=== PATIENT | female | born 1955 | race Caucasian/White ===

== ENCOUNTER 2016-11-01 01:16 | Emergency (ER) | payer BC ==
[~2016-11-01] VITALS: Ht 160 cm; Wt 61.4 kg
[~2016-11-01 01:16] MED LIST: AMBIEN CR 12.12.5 MG PO; BUPROPION75 MG PO; CALTRATE 600 +1 TAB PO; CELEBREX200 MG PO; CEPHALEXIN500 M1 PO; LEXAPRO20 MG PO; LIPITOR20 MG PO; LISINOPRIL20 MG PO; LORTAB 5/500 501 TAB PO; NEURONTIN300 MG PO; PHENERGAN W/CO120 ML PO; PREMPRO 0.625 M1 TAB PO; SYNTHROID0.05 MG PO; VYVANSE50 MG PO; ZYRTEC10 MG PO
[2016-11-01 01:18] VITALS: TEMP 99.8
[2016-11-01 01:57] VITALS: BP 168/108; PULSE 98
== END 2016-11-01 01:57 | disposition home or self-care (01) ==
LOC: COL.ER 01:16
DX: J06.9 Acute upper respiratory infection, unspecified (principal); J98.9 Respiratory disorder, unspecified; I10 Essential (primary) hypertension
CPT/HCPCS: J8540

== ENCOUNTER → 2016-11-15 | Outpatient (CLI) | payer BC | LOC: BHSO 10:14 | DX: F33.42 Major depressive disorder, recurrent, in full remission (principal) ==

== ENCOUNTER → 2016-12-08 | Outpatient (CLI) | payer BC | LOC: MC.RAD 10:19 | DX: D24.2 Benign neoplasm of left breast (principal); D24.1 Benign neoplasm of right breast ==

== ENCOUNTER → 2017-02-14 | Outpatient (CLI) | payer BC | LOC: BHSO 10:13 | DX: F10.20 Alcohol dependence, uncomplicated (principal) ==

== ENCOUNTER → 2017-05-02 | Outpatient (CLI) | payer BC | LOC: BHSO 10:17 | DX: F10.20 Alcohol dependence, uncomplicated (principal) ==

== ENCOUNTER → 2017-05-25 | Outpatient (CLI) | payer BC | LOC: COL.PUL 11:04 | DX: R06.02 Shortness of breath (principal); Z87.891 Personal history of nicotine dependence ==

== ENCOUNTER → 2017-08-02 | Outpatient (CLI) | payer BC | LOC: BHSO 11:39 | DX: F10.20 Alcohol dependence, uncomplicated (principal) ==

== ENCOUNTER → 2017-10-31 | Outpatient (CLI) | payer BC | LOC: BHSO 10:35 | DX: F10.20 Alcohol dependence, uncomplicated (principal) | CPT/HCPCS: G0463 ==

== ENCOUNTER → 2018-02-27 | Outpatient (CLI) | payer BC | LOC: BHSO 10:02 | DX: F10.20 Alcohol dependence, uncomplicated (principal) | CPT/HCPCS: G0463 ==

== ENCOUNTER → 2018-03-21 | Outpatient (CLI) | payer BC | LOC: MC.RAD 13:40 | DX: Z12.31 Encounter for screening mammogram for malignant neoplasm of breast (principal) ==

== ENCOUNTER → 2018-05-22 | Outpatient (CLI) | payer BC | LOC: BHSO 10:37 | DX: F10.20 Alcohol dependence, uncomplicated (principal) | CPT/HCPCS: G0463 ==

== ENCOUNTER → 2018-09-25 | Outpatient (CLI) | payer BC | LOC: BHSO 14:16 | DX: F10.20 Alcohol dependence, uncomplicated (principal) | CPT/HCPCS: G0463 ==

== ENCOUNTER → 2019-03-12 | Outpatient (CLI) | payer BC | LOC: BHSO 13:54 | DX: F10.20 Alcohol dependence, uncomplicated (principal) | CPT/HCPCS: G0463 ==

== ENCOUNTER → 2019-06-04 | Outpatient (CLI) | payer BC | LOC: MC.RAD 14:10 | DX: Z12.31 Encounter for screening mammogram for malignant neoplasm of breast (principal) ==

== ENCOUNTER → 2019-10-17 | Outpatient (CLI) | payer BC | LOC: BHSO 14:58 | DX: F10.20 Alcohol dependence, uncomplicated (principal) | CPT/HCPCS: G0463 ==

== ENCOUNTER → 2020-03-19 | Outpatient (CLI) | payer BC | LOC: BHSO 11:00 | DX: F10.20 Alcohol dependence, uncomplicated (principal) | CPT/HCPCS: G0463 ==

== ENCOUNTER → 2020-06-23 | Outpatient (CLI) | payer BC | LOC: BHSO 10:54 | DX: F10.20 Alcohol dependence, uncomplicated (principal) | CPT/HCPCS: G0463 ==